=== PATIENT | female | born 1970 | race Caucasian/White ===

== ENCOUNTER 2018-02-09 21:01 | Emergency (ER) | payer BC ==
[~2018-02-09] VITALS: Ht 157.5 cm; Wt 53.1 kg
[~2018-02-09 21:01] MED LIST: albuterol; soma; zyrtec
[2018-02-09] MEDS ORDERED: TETANUS/DIPHTHERIA TOX ADULT 0.5 ML SYR IM ONE (21:15)
[2018-02-09] MEDS ORDERED: LIDOCAINE HCL 1% LOCAL INJ 20 ML VIAL ONE (21:17)
[2018-02-09] MEDS ORDERED: LIDOCAINE HCL 1% LOCAL INJ 20 ML VIAL INJ ONE (21:30)
[2018-02-09 22:06] VITALS: BP 110/78
--- NOTE | 2018-02-09 22:41 | Diagnostic Imaging Report ---
HAND 3+ VIEWS RIGHT Comparison: None Clinical history: Foreign body Findings: Overlying bandaging and soft tissue defect along the ulnar aspect of the hand. No radiopaque foreign body. Nondisplaced fracture of ulnar aspect base of the fifth digit proximal phalanx; questionable intra-articular extension. Impression: Nondisplaced fracture of the base of the fifth digit proximal phalanx. Signed by: Dr Atiya Lobo MD on 02/09/2018 10:38 PM
[2018-02-10] MEDS ORDERED: PRAVASTATIN SOD40 MG PO (16:35)
[2018-02-10] MEDS ORDERED: PROGESTERONE PO (16:36)
[2018-02-10] MEDS ORDERED: ASPIR 8181 MG PO (16:36)
[2018-02-10] MEDS ORDERED: XANAX2 MG PO (16:37)
[2018-02-10] MEDS ORDERED: BENADRYL PO (16:38)
[2018-02-10] MEDS ORDERED: ZYRTEC PO (16:38)
[2018-02-10] MEDS ORDERED: ULTRAM 50MG50 MG PO (16:39)
[2018-02-11] MEDS ORDERED: TEMAZEPAM15 MG (07:40)
== END 2018-02-09 22:34 | disposition home or self-care (01) ==
LOC: ER 21:01
DX: S61.411A Laceration without foreign body of right hand, initial encounter (principal); S66.921A Laceration of unspecified muscle, fascia and tendon at wrist and hand level, right hand, initial encounter; W25.XXXA Contact with sharp glass, initial encounter; Y92.008 Other place in unspecified non-institutional (private) residence as the place of occurrence of the external cause
CPT/HCPCS: 12002; 73130; 90471; 90714; 99283; J2001

== ENCOUNTER → 2018-02-11 | Day surgery (SDC) | payer BC ==
[~2018-02-11] MED LIST changes: +ASPIR 8181 MG PO; +BACITRACIN 50,000 UNIT VIAL ONE; +BENADRYL PO; +BUPIVACAINE HCL 0.5% INJ 30 ML VIAL INJ ONE; +CEFAZOLIN SOD 1 GM VIAL ONE; +DEXAMETHASONE SOD PHOS INJ 4 MG/ML VIAL ONE; +FENTANYL CITRATE/PF 100MCG/2 ML INJ ONE; +KETOROLAC TROMETHAMINE 30 MG/ML VIAL ONE; +LIDOCAINE HCL 2% LOCAL INJ 5 ML SDV VIAL INJ ONE; +MIDAZOLAM HCL 2 MG/2 ML VIAL ONE; +MUPIROCIN 2% OINT 22 GM TUBE ONE; +ONDANSETRON HCL INJ 2 MG/ML VIAL ONE; +PRAVASTATIN SOD40 MG PO; +PROGESTERONE PO; +PROPOFOL IV EMULSION 10 MG/ML 20 ML VIAL ONE; +SEVOFLURANE INHAL SOLN 250 ML PEN BTL ONE; +TEMAZEPAM15 MG; +ULTRAM 50MG50 MG PO; +XANAX2 MG PO; +ZYRTEC PO
--- NOTE | 2018-02-11 11:12 | Operative Report ---
DATE OF PROCEDURE: February 11, 2018 PREOPERATIVE DIAGNOSIS: Penetrating laceration, right little finger at metatarsophalangeal joint level. POSTOPERATIVE DIAGNOSES 1. Laceration, right little finger extensor tendon. 2. Laceration, right little finger joint capsule, metatarsophalangeal joint, with injury to articular surface. PROCEDURES 1. Exploration of penetrating injury, right little finger metatarsophalangeal joint. 2. Repair of the joint capsule, metatarsophalangeal joint. 3. Repair of extensor tendon, right little finger. ANESTHESIA: General. HISTORY: The patient is a 47-year-old, [id number] female who yesterday slipped and fell against a plate glass mirror. She sustained a laceration over the MP joint of the right little finger. She was seen at the emergency room where examination revealed a wound that extended all the way through to the MP joint. Radiographs were performed and showed no retained glass foreign bodies. The wound had been sutured, and the patient was then referred for evaluation and management. The risks, benefits and alternatives of treatment were discussed with the patient and the family. They are prepared to undergo the procedures outlined. DETAILS OF PROCEDURE: The patient was marked preoperatively in the holding area. She was brought to the operating theater. After the induction of adequate general anesthesia, she was prepped and draped in a supine position. A time out was performed. The procedure was begun by removing all of the sutures that were placed in the emergency room. The right upper extremity was exsanguinated, and the tourniquet was inflated to a pressure of 250 mmHg. The incision was gently pried apart. Immediately in the subcutaneous space, a piece of articular cartilage was identified floating free. This was then removed. At this point, inspection of the wound revealed there to be a laceration of the extensor tendon directly over the MP joint. The joint capsule had been lacerated as well, and the articular surface of the metacarpal head was visible. The finger was placed on stretch. Using antibiotic irrigation, the joint was irrigated until all of the effluent was noted to be clear. At this point, the joint capsule was sharply debrided and then repaired using 4-0 Vicryl in interrupted sutures. Once the joint capsule had been repaired, attention was then turned to the repair of the extensor tendon. The lacerated portion of the extensor tendon was gently debrided of its edges and then repaired using 4-0 Supramid in an interrupted horizontal mattress fashion. At this point, the finger was placed through a complete range of motion, and repair was noted to glide over the joint capsule smoothly, and there was no gapping of the repair. At this point, the wound was irrigated once again, and the skin and subcutaneous tissues were sharply debrided of their devitalized edges and then repaired using 5-0 nylon in an interrupted horizontal mattress fashion. A Marcaine field block was performed at the operative site. Tourniquet was deflated. All the fingers pinked up nicely, and a sterile, bulking, conforming bandage was applied. An ulnar gutter splint was applied from the forearm to the tips of the ring and little fingers, which held the wrist in approximately 50 to 60 degrees of extension and the MPs at approximately 60 to 70 degrees of flexion. This was held in place with a loosely wrapped Eliud wrap. The patient tolerated the procedure well and was brought to the recovery room in satisfactory condition and discharged with a postoperative instruction sheet as well a followup appointment. Job#: [id number]
== END | disposition home or self-care (01) ==
LOC: OR 07:06
PROVIDERS: ATTEND Plastic Surgery
DX: S66.326A Laceration of extensor muscle, fascia and tendon of right little finger at wrist and hand level, initial encounter (principal); S61.411A Laceration without foreign body of right hand, initial encounter; J45.909 Unspecified asthma, uncomplicated; F17.210 Nicotine dependence, cigarettes, uncomplicated; W01.110A Fall on same level from slipping, tripping and stumbling with subsequent striking against sharp glass, initial encounter; Z79.82 Long term (current) use of aspirin
CPT/HCPCS: 26410; 26418; J0690; J1100; J1885; J2001; J2250; J2405